=== PATIENT | male | born 1955 | race Caucasian/White ===

== ENCOUNTER 2016-11-01 18:40 | Emergency (ER) | payer OTHER ==
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
== END 2016-11-01 19:40 | disposition home or self-care (01) ==
LOC: JD.ED 18:40
CPT/HCPCS: 99282; 99284